=== PATIENT | male | born 1995 | race Caucasian/White ===

== ENCOUNTER 2024-10-17 15:55 | Emergency (ER) | payer OTHER ==
[~2024-10-17] VITALS: Ht 190.5 cm; Wt 90.7 kg
[2024-10-17] MEDS ORDERED: ONDANSETRON HCL/PF 4 MG/2 ML VIAL ONE (16:29)
[2024-10-17 16:32] LABS: BASOPHILS % (AUTO) 0.2 % (0.0-2.0); EOSINOPHILS % (AUTO) 0.1 % (0.0-6.0); HEMATOCRIT 51 % (39-51); HEMOGLOBIN 17.4 g/dL (13.5-17.5); LYMPHOCYTES # (AUTO) 0.6 K/uL (0.8-4.8); LYMPHOCYTES % (AUTO) 5.7 % (20.0-44.0); MEAN CORPUSCULAR HEMOGLOBIN 31 PG (26.0-33.0); MEAN CORPUSCULAR HGB CONC 34 g/dl (31.0-36.0); MEAN CORPUSCULAR VOLUME 89 fL (80-96); MONOCYTES # (AUTO) 0.7 K/uL (0.1-1.30); MONOCYTES % (AUTO) 6.6 % (2.0-12.0); NEUTROPHILS # (AUTO) 8.8 K/uL (1.8-8.9); NEUTROPHILS % (AUTO) 87.4 % (43.0-81.0); PLATELET COUNT (AUTO) 257 K/uL (150-450); RED BLOOD CELL COUNT(AUTO) 5.69 MIL/uL (4.5-6.0); RED CELL DISTRIBUTION WIDTH 12.8 % (11.5-15.0); WHITE BLOOD COUNT (AUTO) 10.1 K/uL (4.3-11.0)
[2024-10-17] MEDS: ONDANSETRON HCL/PF 4 MG/2 ML VIAL IVP ONE (16:34)
[2024-10-17] MEDS: IV NS 0.9% 1,000 ML BAG IV ONE (16:35)
[2024-10-17] MEDS ORDERED: LIDOCAINE 5% (PATCH) 1 EA PATCH TP STA (16:39)
[2024-10-17 16:42] LABS: CALCIUM, SERUM 8.8 mg/dL (8.5-10.1); POTASSIUM 3.7 mmol/L (3.5-5.1)
[2024-10-17] MEDS ORDERED: ONDA4TAB5 PO (16:50)
[2024-10-17 17:45] VITALS: BP 129/68; TEMP 98.4; O2SAT 98
== END 2024-10-17 17:45 | disposition home or self-care (01) ==
LOC: ER 16:06
DX: R10.31 Right lower quadrant pain (principal); R19.7 Diarrhea, unspecified; R11.2 Nausea with vomiting, unspecified; Z90.49 Acquired absence of other specified parts of digestive tract
CPT/HCPCS: 99283; 96374; 96361; 85025; 80048; 36415; J2405; J7030